=== PATIENT | female | born 1940 | race Caucasian/White ===

== ENCOUNTER → 2017-05-14 | Outpatient (CLI) | payer MEDICARE ==
[2013-12-16 10:03] VITALS: BP 154/73
[~2017-05-14] MED LIST: CEPHALEXIN500 M1 PO; HCTZ 25MG25 MG PO; LISINOPRIL20 MG PO; MEGA RED; NORCO 325 MG-51 TAB PO; PRILOSEC 20MG20 MG PO; ROBITUSSIN CF; SYNTHROID0.05 MG PO; TESSALON PERLE200 MG PO; TYLENOL W CODEIN1 ML PO; VYTORIN 10 MG-41 TAB PO; [UNRECOGNIZED DRUG - OTHER] PO
== END ==
LOC: LAB 07:01
DX: Z00.00 Encounter for general adult medical examination without abnormal findings (principal); I10 Essential (primary) hypertension; E03.4 Atrophy of thyroid (acquired); R73.02 Impaired glucose tolerance (oral); E78.2 Mixed hyperlipidemia

== ENCOUNTER → 2017-07-15 | Outpatient (CLI) | payer MEDICARE ==
[2013-12-16 10:03] VITALS: BP 154/73
== END ==
LOC: MAMMO 08:07 → RAD 08:07
DX: Z12.31 Encounter for screening mammogram for malignant neoplasm of breast (principal)
CPT/HCPCS: G0202

== ENCOUNTER → 2018-06-02 | Outpatient (CLI) | payer MEDICARE ==
[2013-12-16 10:03] VITALS: BP 154/73
[2018-06-02 07:49] LABS: ALBUMIN 3.9 g/dL (3.5-5.0); CALCIUM 9.7 mg/dL (8.4-10.2); POTASSIUM 3.3 mmol/L (3.6-5.0); TOTAL BILIRUBIN 1.3 mg/dL (0.2-1.3); TOTAL PROTEIN 7.3 g/dL (6.3-8.2)
[2018-06-02 08:49] LABS: BASO # 0.1 (0.02-0.10); EOS # 0.2 (0.04-0.40); EOS % 3.4 % (1.0-5.0); HEMATOCRIT 47.3 % (37.0-47.0); HEMOGLOBIN 15.5 g/dL (12.5-16.0); LYMPH# 1.9 (1.50-4.00); MEAN CELL VOLUME 89 fl (78-100); MEAN CORPUSCULAR HEMOGLOBIN 29 pg (27-31); MEAN CORPUSCULAR HGB CONC 33 g/dL (33-37); MEAN PLATELET VOLUME 11.7 fl (7.4-10.4); MONO # 0.6 (0.20-0.80); NEU # 3.8 (1.40-6.50); PLATELET COUNT 221 K/mm3 (130-400); RED BLOOD COUNT 5.31 M/mm3 (4.10-5.30); RED CELL DISTRIBUTION WIDTH 15.3 % (11.5-14.5); WHITE BLOOD COUNT 6.7 K/mm3 (4.8-10.8)
== END ==
LOC: LAB 07:05
PROVIDERS: Physician Assistant
DX: Z12.39 Encounter for other screening for malignant neoplasm of breast (principal); Z00.00 Encounter for general adult medical examination without abnormal findings; I10 Essential (primary) hypertension; E78.5 Hyperlipidemia, unspecified; R73.02 Impaired glucose tolerance (oral); K21.9 Gastro-esophageal reflux disease without esophagitis; E03.9 Hypothyroidism, unspecified; E66.9 Obesity, unspecified; B36.0 Pityriasis versicolor

== ENCOUNTER → 2018-08-09 | Outpatient (CLI) | payer MEDICARE ==
[2013-12-16 10:03] VITALS: BP 154/73
== END ==
LOC: MAMMO 09:06
DX: Z12.31 Encounter for screening mammogram for malignant neoplasm of breast (principal); Z00.00 Encounter for general adult medical examination without abnormal findings

== ENCOUNTER 2018-09-27 14:48 | Emergency (ER) | payer MEDICARE | END 2018-09-27 18:22 | disposition short-term general hospital (02) | LOC: ED 14:48 | DX: K85.90 Acute pancreatitis without necrosis or infection, unspecified (principal); K80.50 Calculus of bile duct without cholangitis or cholecystitis without obstruction; R94.5 Abnormal results of liver function studies; I10 Essential (primary) hypertension; E78.5 Hyperlipidemia, unspecified; E07.9 Disorder of thyroid, unspecified; Z96.653 Presence of artificial knee joint, bilateral ==

== ENCOUNTER → 2019-03-09 | Outpatient (CLI) | payer MEDICARE ==
[2018-09-27 18:04] VITALS: BP 172/95
[~2019-03-09] MED LIST changes: +COZAAR25 M1 PO; -MEGA RED; +MEGA RED PO
[2019-03-09 10:44] LABS: EOS # 0.2 (0.04-0.40); EOS % 3.2 % (1.0-5.0); HEMATOCRIT 47.8 % (37.0-47.0); HEMOGLOBIN 15.6 g/dL (12.5-16.0); LYMPH# 1.5 (1.50-4.00); MEAN CELL VOLUME 90 fl (78-100); MEAN CORPUSCULAR HEMOGLOBIN 29 pg (27-31); MEAN CORPUSCULAR HGB CONC 33 g/dL (33-37); MEAN PLATELET VOLUME 10.8 fl (7.4-10.4); MONO # 0.6 (0.20-0.80); NEU # 3.9 (1.40-6.50); PLATELET COUNT 190 K/mm3 (130-400); RED BLOOD COUNT 5.34 M/mm3 (4.10-5.30); RED CELL DISTRIBUTION WIDTH 15.4 % (11.5-14.5); WHITE BLOOD COUNT 6.2 K/mm3 (4.8-10.8)
[2019-03-09 10:51] LABS: ALBUMIN 3.7 g/dL (3.4-4.8); POTASSIUM 3.7 mmol/L (3.5-5.1)
[2019-03-09 10:53] LABS: CALCIUM 9.9 mg/dL (8.3-10.5)
[2019-03-09 10:56] LABS: TOTAL BILIRUBIN 1.5 mg/dL (0.2-1.2)
[2019-03-09 11:08] LABS: URINE APPEARANCE CLEAR; URINE BILIRUBIN NEGATIVE (NEGATIVE); URINE BLOOD NEGATIVE (NEGATIVE); URINE COLOR YELLOW; URINE GLUCOSE NEGATIVE (NEGATIVE); URINE KETONE NEGATIVE (NEGATIVE); URINE LEUKOCYTE ESTERASE NEGATIVE (NEGATIVE); URINE NITRATE NEGATIVE (NEGATIVE); URINE PROTEIN(semi-quant) NEGATIVE (NEGATIVE); URINE UROBILINOGEN NORMAL (NORMAL)
[2019-03-09 11:09] LABS: URINE MUCUS PRESENT (NOT PRESENT); URINE WBC 0-1 /hpf (0-3)
== END ==
LOC: LAB 10:34
PROVIDERS: Physician Assistant
DX: K21.9 Gastro-esophageal reflux disease without esophagitis (principal); M54.6 Pain in thoracic spine; R10.9 Unspecified abdominal pain; Z90.49 Acquired absence of other specified parts of digestive tract

== ENCOUNTER → 2019-08-08 | Outpatient (CLI) | payer MEDICARE ==
[2018-09-27 18:04] VITALS: BP 172/95
== END ==
LOC: MAMMO 08:18
DX: Z12.31 Encounter for screening mammogram for malignant neoplasm of breast (principal)

== ENCOUNTER → 2020-02-05 | Outpatient (CLI) | payer MEDICARE ==
[2018-09-27 18:04] VITALS: BP 172/95
== END ==
LOC: LAB 07:37
DX: Z00.00 Encounter for general adult medical examination without abnormal findings (principal); Z12.31 Encounter for screening mammogram for malignant neoplasm of breast; I10 Essential (primary) hypertension; E78.5 Hyperlipidemia, unspecified; K21.9 Gastro-esophageal reflux disease without esophagitis; E03.9 Hypothyroidism, unspecified; E66.9 Obesity, unspecified; R73.02 Impaired glucose tolerance (oral); B36.0 Pityriasis versicolor

== ENCOUNTER → 2021-02-12 | Outpatient (CLI) | payer MEDICARE ==
[2021-02-12 09:35] LABS: ALBUMIN 3.8 g/dL (3.4-4.8); POTASSIUM 3.1 mmol/L (3.5-5.1)
[2021-02-12 09:36] LABS: CALCIUM 9.3 mg/dL (8.3-10.5)
[2021-02-12 09:38] LABS: TOTAL PROTEIN 7.5 g/dL (6.2-8.1)
[2021-02-12 09:39] LABS: TOTAL BILIRUBIN 1.5 mg/dL (0.2-1.2)
[2021-02-12 10:47] LABS: BASO # 0.05 (0.02-0.10); EOS # 0.18 (0.04-0.40); HEMATOCRIT 49.6 % (37.0-47.0); HEMOGLOBIN 16.3 g/dL (12.5-16.0); LYMPH# 1.27 (1.50-4.00); MEAN CELL VOLUME 90 fl (78-100); MEAN CORPUSCULAR HEMOGLOBIN 29 pg (27-31); MEAN CORPUSCULAR HGB CONC 33 g/dL (33-37); MEAN PLATELET VOLUME 11.5 fl (7.4-10.4); MONO # 0.48 (0.20-0.80); NEU # 4.09 (1.40-6.50); PLATELET COUNT 203 K/mm3 (130-400); RED BLOOD COUNT 5.54 M/mm3 (4.10-5.30); RED CELL DISTRIBUTION WIDTH 14.1 % (11.5-14.5); WHITE BLOOD COUNT 6.1 K/mm3 (4.8-10.8)
== END ==
LOC: LAB 08:22
PROVIDERS: Physician Assistant
DX: Z00.00 Encounter for general adult medical examination without abnormal findings (principal); E78.2 Mixed hyperlipidemia; I10 Essential (primary) hypertension; R73.09 Other abnormal glucose; E03.4 Atrophy of thyroid (acquired)

== ENCOUNTER → 2021-02-19 | Outpatient (CLI) | payer MEDICARE | LOC: MAMMO 14:05 | DX: Z13.820 Encounter for screening for osteoporosis (principal); Z12.31 Encounter for screening mammogram for malignant neoplasm of breast; M85.80 Other specified disorders of bone density and structure, unspecified site ==

== ENCOUNTER → 2021-05-19 | Outpatient (CLI) | payer MEDICARE | LOC: LAB 07:48 | DX: K90.9 Intestinal malabsorption, unspecified (principal); E11.9 Type 2 diabetes mellitus without complications ==

== ENCOUNTER 2021-08-27 08:52 | Outpatient (RCR) | payer MEDICARE | END 2021-09-01 | disposition home or self-care (01) | LOC: PT | DX: S39.012A Strain of muscle, fascia and tendon of lower back, initial encounter (principal) ==

== ENCOUNTER 2021-09-04 08:47 | Outpatient (RCR) | payer MEDICARE | END 2021-09-29 | disposition still patient (30) | LOC: PT | DX: S39.012A Strain of muscle, fascia and tendon of lower back, initial encounter (principal); X58.XXXA Exposure to other specified factors, initial encounter ==

== ENCOUNTER 2021-10-02 09:05 | Outpatient (RCR) | payer MEDICARE | END 2021-10-30 11:43 | disposition home or self-care (01) | LOC: PT 09:05 | DX: S39.012D Strain of muscle, fascia and tendon of lower back, subsequent encounter (principal); X58.XXXD Exposure to other specified factors, subsequent encounter ==

== ENCOUNTER → 2021-10-16 | Outpatient (CLI) | payer MEDICARE | LOC: LAB 10:10 | DX: Z23 Encounter for immunization (principal); E11.9 Type 2 diabetes mellitus without complications; I10 Essential (primary) hypertension; M25.512 Pain in left shoulder ==

== ENCOUNTER → 2022-04-08 | Outpatient (CLI) | payer MEDICARE | LOC: MAMMO 13:24 | DX: Z12.31 Encounter for screening mammogram for malignant neoplasm of breast (principal) ==

== ENCOUNTER → 2023-07-14 | Outpatient (CLI) | payer MEDICARE | LOC: LAB 07:39 | DX: U07.1 COVID-19 (principal) ==

== ENCOUNTER → 2024-06-20 | Outpatient (CLI) | payer MEDICARE ==
[2024-06-20 11:30] LABS: BASO # 0.06 K/mm3 (0.02-0.10); EOS # 0.22 K/mm3 (0.04-0.40); EOS % 3.3 % (1.0-5.0); HEMATOCRIT 48.6 % (37.0-47.0); HEMOGLOBIN 15.9 g/dL (12.5-16.0); LYMPH# 1.69 K/mm3 (1.50-4.00); MEAN CELL VOLUME 91 fl (78-100); MEAN CORPUSCULAR HEMOGLOBIN 30 pg (27-31); MEAN CORPUSCULAR HGB CONC 33 g/dL (33-37); MEAN PLATELET VOLUME 11.3 fl (7.4-10.4); NEU # 4.13 K/mm3 (1.40-6.50); PLATELET COUNT 144 K/mm3 (130-400); RED BLOOD COUNT 5.36 M/mm3 (4.10-5.30); RED CELL DISTRIBUTION WIDTH 15.6 % (11.5-14.5); WHITE BLOOD COUNT 6.6 K/mm3 (4.8-10.8)
[2024-06-20 11:59] LABS: ALBUMIN 3.7 g/dL (3.4-4.8)
[2024-06-20 12:00] LABS: CALCIUM 10.4 mg/dL (8.3-10.5)
[2024-06-20 12:01] LABS: TOTAL PROTEIN 7.8 g/dL (6.2-8.1)
[2024-06-20 12:03] LABS: TOTAL BILIRUBIN 1.9 mg/dL (0.2-1.2)
== END ==
LOC: LAB 11:10
PROVIDERS: Physician Assistant
DX: I10 Essential (primary) hypertension (principal); K90.9 Intestinal malabsorption, unspecified; E03.4 Atrophy of thyroid (acquired); E11.9 Type 2 diabetes mellitus without complications; E78.2 Mixed hyperlipidemia

== ENCOUNTER → 2024-06-26 | Outpatient (CLI) | payer MEDICARE | LOC: MAMMO 14:57 | DX: Z12.31 Encounter for screening mammogram for malignant neoplasm of breast (principal) ==

== ENCOUNTER → 2024-09-28 | Outpatient (CLI) | payer MEDICARE ==
[2024-09-28 10:39] LABS: ALBUMIN 3.4 g/dL (3.4-4.8)
[2024-09-28 10:40] LABS: CALCIUM 10.4 mg/dL (8.3-10.5)
[2024-09-28 10:41] LABS: TOTAL PROTEIN 7.8 g/dL (6.2-8.1)
== END ==
LOC: LAB 10:10
PROVIDERS: Physician Assistant
DX: E78.2 Mixed hyperlipidemia (principal); R74.01 Elevation of levels of liver transaminase levels